=== PATIENT | male | born 2005 | race Caucasian/White ===

== ENCOUNTER 2024-01-01 21:49 | Emergency (ER) | payer OTHER, SELFPAY ==
--- NOTE | 2024-01-01 22:04 | ED.GENADULT ---
HPI - General Adult General Time Seen by Provider: 22:04 Date Seen: 01/01/24 Chief complaint: Ear/Nose/Throat Problem Stated complaint: Ear infection - L side Time Seen by Provider: 01/01/24 21:59 Source: patient, RN notes reviewed and old records reviewed Mode of arrival: ambulatory Limitations: no limitations History of Present Illness HPI narrative: 89-year-old male who presents today with ear pain and sore throat. Patient notes left ear pain for about the last 8 days along with pain on the left side of the neck left-sided throat. No bleeding or drainage from the ear, hearing is okay, does note some pain in the throat with swallowing. Denies runny nose or sinus congestion. Denies cough, no fevers. Has taken Tylenol and ibuprofen with minimal improvement. Related Data Home Medications Medication Instructions Recorded Confirmed bupropion HCl 100 mg tablet 150 mg PO DAILY 01/01/24 01/01/24 calcium phos,dibas-vitamin D3 PO 01/01/24 Previous Rx's Medication Instructions Recorded valacyclovir 1 gram tablet 1,000 mg PO BID #14 tabs 01/01/24 (Valtrex) Allergies Allergy/AdvReac Type Severity Reaction Status Date / Time pollen extracts Allergy Mild Watery Eyes Verified 01/01/24 22:13 Review of Systems Status of ROS: Reports: 10 or more systems reviewed and unremarkable except as noted in History and below PFSH PFS Social History Smoking Status: Never smoker Do you use any of these nicotine containing products: None Second hand tobacco smoke exposure: No How often do you have a drink containing alcohol: never AUDIT-C Alcohol total score: 0 Non-prescribed substance use: denies use Exam Narrative: Exam Narrative: General: well nourished , NAD Head: Atraumatic and normocephalic ENT: External ears and external nose are normal. Small amount of cerumen in the left external auditory canal, visualized tympanic membrane is without redness or bulging, no erythema or tenderness of the external auditory canal. Mild tenderness of the left anterior cervical lymph nodes without marked adenopathy. Examination the posterior pharynx with erythema and ulceration of the left anterior tonsillar pillar, no tonsillar soft palate asymmetry to suggest peritonsillar abscess. Eyes: Conjunctiva clear, pupils are equal reactive, external ocular motions are intact Neck: Full spontaneous range of motion of the neck Lungs: No respiratory distress Musculoskeletal: No tenderness or deformity Neurologic: No gross focal neurologic deficits Skin: No rashes Psych: Mood and affect are appropriate Const: Vital Signs, click to edit/add: Vital Signs - 24 hr 01/01/24 22:09 Temperature 99.6 F Pulse Rate [Pulse Oximeter] 77 Respiratory Rate 18 Blood Pressure [Ri ght Upper Arm] 130/80 Pulse Oximetry 98 Oxygen Delivery Me thod Room Air Course Course ED Course: Patient seen examined, prior records reviewed. Patient presents today with sore throat and ear pain. On exam, tympanic membrane and external auditory canal are normal in appearance. Posterior pharynx with erythema on the left and an ulceration of the anterior tonsillar pillar as well as some tenderness of the anterior cervical lymph nodes on the left. Symptoms are most consistent with canker sore viral infection, strep throat clinically unlikely, no evidence for peritonsillar abscess. Patient will be started on prednisone, also we given Valtrex although this would not be typical location for HSV Vital Signs Vital signs: Initial Vital Signs Temperature 99.6 F 01/01/24 22:09 Temperature Source Temporal Artery Scan 01/01/24 22:09 Pulse Rate 77 01/01/24 22:09 Respiratory Rate 18 01/01/24 22:09 Blood Pressure 130/80 01/01/24 22:09 Blood Pressure Mean 96 01/01/24 22:09 Blood Pressure Position Sitting 01/01/24 22:09 Pulse Oximetry 98 01/01/24 22:09 Oxygen Delivery Method Room Air 01/01/24 22:09 Vital Signs Temperature 99.6 F 01/01/24 22:09 Pulse Rate 77 01/01/24 22:09 Respiratory Rate 18 01/01/24 22:09 Blood Pressure 130/80 01/01/24 22:09 Pulse Oximetry 98 01/01/24 22:09 Oxygen Delivery Method Room Air 01/01/24 22:09 Temperature 99.6 F 01/01/24 22:09 Pulse Rate 77 01/01/24 22:09 Respiratory Rate 18 01/01/24 22:09 Blood Pressure 130/80 01/01/24 22:09 Pulse Oximetry 98 01/01/24 22:09 Oxygen Delivery Method Room Air 01/01/24 22:09 Medical Decision Making Medical Records Medical records reviewed: Yes I reviewed the patient's medical records Lab Data Lab results reviewed: Yes I reviewed the patient's lab results Discharge Plan Discharge Clinical Impression: Oral ulcer, Otalgia of left ear, Pharyngitis Patient Disposition: Home, Self-Care Condition: Stable Instructions: Pharyngitis (ED) Additional Instructions: You have inflammation of the left side the throat along with an ulcer on the left side of throat. This can be related to mild viral infection. Take prednisone and antiviral, Valtrex, as prescribed. Tylenol ibuprofen as needed for pain. Salt water gargles for comfort and follow up with primary care. Activity Level: No Restrictions Prescriptions: New valacyclovir [Valtrex] 1 gram tablet 1,000 mg PO BID Qty: 14 0RF No Action bupropion HCl 100 mg tablet 150 mg PO DAILY calcium phos,dibas-vitamin D3 [Vitamin D (with calcium)] PO Stand Alone Forms: MyHealth Info Instructions
[2024-01-01 22:09] VITALS: BP 130/80; PULSE 77; RESP 18; TEMP 37.6; O2SAT 98; BMI 20.1
== END 2024-01-01 22:53 | disposition home or self-care (01) ==
LOC: ED 22:38
PROVIDERS: Emergency Provider Family Medicine
DX: H92.02 Otalgia, left ear (principal); J02.9 Acute pharyngitis, unspecified; K12.30 Oral mucositis (ulcerative), unspecified
CPT/HCPCS: 99283